=== PATIENT | male | born 1955 | race Two or more races ===

== ENCOUNTER 2022-04-25 05:45 | Day surgery (SDC) | payer OTHER ==
[~2022-04-25 05:45] MED LIST: GLUMETZA500 MG PO; LIPIT PO
[2022-04-25] MEDS ORDERED: PERCOCET 5-3251 EACH PO (13:17)
== END 2022-04-25 14:05 | disposition home or self-care (01) ==
LOC: CIR.AMB 05:45
PROVIDERS: ATTEND Surgery
DX: D12.8 Benign neoplasm of rectum (principal); K62.5 Hemorrhage of anus and rectum; E11.9 Type 2 diabetes mellitus without complications; F17.200 Nicotine dependence, unspecified, uncomplicated; Z20.822 Contact with and (suspected) exposure to COVID-19

== ENCOUNTER 2022-06-20 09:15 | Inpatient (IN) | payer OTHER ==
[~2022-06-20] VITALS: Ht 170.2 cm; Wt 86.6 kg
[~2022-06-20 09:15] MED LIST changes: +PERCOCET 5-3251 EACH PO
[2022-06-27] MEDS ORDERED: ADVIL LIQUI-GE200 MG (08:16)
[2022-06-27] MEDS ORDERED: ALL DAY ALLERGY10 MG (08:16)
[2022-06-27] MEDS ORDERED: CENTRUM SILVER1 EAC2 (08:16)
[2022-06-27] MEDS ORDERED: ATORVASTATIN CA20 MG (08:16)
[2022-06-30] MEDS ORDERED: PERCOCET 5-3251 EACH PO (12:55)
[2022-06-30] MEDS ORDERED: NEURONTIN300 MG PO (12:56)
[2022-06-30] MEDS ORDERED: TAMS0.4C PO (12:56)
== END 2022-06-30 15:14 | disposition home or self-care (01) | DRG 331 ==
LOC: O/R 06-27 06:00 → SURG 06-27 06:00 → SURH 06-27 07:00 → SURG 06-27 12:35
PROVIDERS: ADMIT Surgery; ATTEND Surgery
PROC: 0DTP4ZZ Resection of Rectum, Percutaneous Endoscopic Approach (ICD-10-PCS; 2022-06-27)
PROC: 0DTN4ZZ Resection of Sigmoid Colon, Percutaneous Endoscopic Approach (ICD-10-PCS; 2022-06-27)
PROC: 07BB4ZZ Excision of Mesenteric Lymphatic, Percutaneous Endoscopic Approach (ICD-10-PCS; 2022-06-27)
PROC: 0D1B4Z4 Bypass Ileum to Cutaneous, Percutaneous Endoscopic Approach (ICD-10-PCS; principal; 2022-06-27 07:00)
DX: D12.8 Benign neoplasm of rectum (principal); R93.5 Abnormal findings on diagnostic imaging of other abdominal regions, including retroperitoneum; K62.89 Other specified diseases of anus and rectum; R59.0 Localized enlarged lymph nodes; Z20.822 Contact with and (suspected) exposure to COVID-19

== ENCOUNTER 2023-02-10 08:30 | Inpatient (IN) | payer OTHER ==
[~2023-02-10] VITALS: Ht 170.2 cm; Wt 80.3 kg
[~2023-02-10 08:30] MED LIST changes: +ADVIL LIQUI-GE200 MG; +ALL DAY ALLERGY10 MG; +ATORVASTATIN CA20 MG; +CENTRUM SILVER1 EAC2; +NEURONTIN300 MG PO; +TAMS0.4C PO
[2023-02-13] MEDS ORDERED: TAMSULOSIN HCL0.4 MG (08:19)
[2023-02-16] MEDS ORDERED: NEURONTIN300 MG PO (16:53)
[2023-02-16] MEDS ORDERED: TRAM1TAB98 PO (16:53)
[2023-02-16] MEDS ORDERED: INTESTINEX680 M1 PO (16:53)
== END 2023-02-16 17:41 | disposition home or self-care (01) | DRG 348 ==
LOC: O/R 02-13 05:35 → SURH 02-13 05:35 → SURG 02-13 07:00 → SURH 02-13 13:08 → SURG 02-13 16:10 → SURH 02-16 17:41
PROVIDERS: ADMIT Surgery; ATTEND Surgery
PROC: 0DBB4ZZ Excision of Ileum, Percutaneous Endoscopic Approach (ICD-10-PCS; principal; 2023-02-13 16:10)
DX: D12.8 Benign neoplasm of rectum (principal); K62.5 Hemorrhage of anus and rectum; R93.5 Abnormal findings on diagnostic imaging of other abdominal regions, including retroperitoneum; Z93.2 Ileostomy status

== ENCOUNTER 2024-06-02 05:15 | Day surgery (SDC) | payer OTHER ==
[~2024-06-02 05:15] MED LIST changes: +INTESTINEX680 M1 PO; +TAMSULOSIN HCL0.4 MG; +TRAM1TAB98 PO
[2024-06-02] MEDS ORDERED: BUPIVACAINE HCL 30 ML VIAL IJ SCH (08:00)
[2024-06-02] MEDS ORDERED: LIDOCAINE HCL 1%/EPINEPHRINE 20ML VIAL IJ SCH (08:00)
[2024-06-02] MEDS ORDERED: CEFTRIAXONE SODIUM 2,000 MG VIAL IV SCH (08:00)
[2024-06-02] MEDS ORDERED: METRONIDAZOLE/SODIUM CHLORIDE 500 MG/100 ML PIGGYBACK IV SCH (08:00)
[2024-06-02] MEDS ORDERED: POVIDONE-IODINE 118 ML BOTT TOP SCH (08:00)
[2024-06-02] MEDS ORDERED: HEMOSTATIC MATRIX 1 KIT KIT TOP SCH (08:00)
[2024-06-02] MEDS ORDERED: DIBUCAINE 30 GM TUBE RECTAL SCH (08:00)
[2024-06-02] MEDS ORDERED: TAMSULOSIN HCL 0.4 MG CAP PO ONE (08:45)
[2024-06-02] MEDS ORDERED: OXYC1TAB9 PO (10:24)
== END 2024-06-02 13:10 | disposition home or self-care (01) ==
LOC: CIR.AMB 05:15
PROVIDERS: ATTEND Surgery
DX: D12.8 Benign neoplasm of rectum (principal); K62.89 Other specified diseases of anus and rectum; E11.9 Type 2 diabetes mellitus without complications; E78.00 Pure hypercholesterolemia, unspecified